=== PATIENT | male | born 1940 | race Caucasian/White ===

== ENCOUNTER → 2016-03-29 | Outpatient (CLI) | payer MEDICARE, OTHER | LOC: RAD 07:05 | PROVIDERS: ATTEND Orthopaedic Surgery | DX: T84.3 Mechanical complication of other bone devices, implants and grafts (principal) ==

== ENCOUNTER 2016-05-19 11:04 | Inpatient (IN) | payer MEDICARE, OTHER ==
[2016-05-09 10:17] LABS: ABSOLUTE EOSINOPHILS # (AUTO) 0.1 10^3/uL (0.0-0.6); ABSOLUTE LYMPHOCYTES (AUTO) 1.5 10^3/uL (0.5-4.7); ABSOLUTE MONOCYTES (AUTO) 0.7 10^3/uL (0.1-1.4); ABSOLUTE NEUT (AUTO) 4.4 10^3/uL (1.7-8.2); BASOPHILS % (AUTO) 0.6 % (0-2); EOSINOPHILS % (AUTO) 1.7 % (0-6); HEMATOCRIT 40.9 % (37.9-51.0); HEMOGLOBIN 13.4 g/dL (13.5-17.0); HGB HCT DIFFERENCE -0.7; LYMPHOCYTES % (AUTO) 22.5 % (13-45); MEAN CORPUSCULAR HEMOGLOBIN 27.6 pg (27.0-33.4); MEAN CORPUSCULAR HGB CONC 32.7 g/dL (32.0-36.0); MEAN CORPUSCULAR VOLUME 84 fl (80-97); MONOCYTES % (AUTO) 9.8 % (3-13); RED BLOOD COUNT 4.85 10^6/uL (4.35-5.55); RED CELL DISTRIBUTION WIDTH 17.3 % (11.5-14.0); SEGMENTED NEUTROPHILS % (AUTO) 65.4 % (42-78); WHITE BLOOD COUNT 6.8 10^3/uL (4.0-10.5)
[2016-05-09 10:26] LABS: APPEARANCE,URINE SLIGHTLY-CLOUDY; BILIRUBIN,URINE NEGATIVE (NEGATIVE); GLUCOSE, URINE NEGATIVE (NEGATIVE); KETONES,URINE NEGATIVE (NEGATIVE); LEUKOCYTE ESTERASE,URINE LARGE (NEGATIVE); NITRITE,URINE NEGATIVE (NEGATIVE); PROTEIN,URINE NEGATIVE (NEGATIVE); URINE SPECIFIC GRAVITY 1.013; UROBILINOGEN,URINE NEGATIVE mg/dL (<2.0)
[2016-05-09 10:42] LABS: ANION GAP 11 (5-19); BLOOD UREA NITROGEN 15 mg/dL (7-20); CALCIUM 9.3 mg/dL (8.4-10.2); CARBON DIOXIDE 26 mmol/L (22-30); CHLORIDE 106 mmol/L (98-107); CREATININE RESULT 0.96 mg/dL (0.52-1.25); GLUCOSE 80 mg/dL (75-110); POTASSIUM 4.7 mmol/L (3.6-5.0); SODIUM 142.9 mmol/L (137-145)
--- NOTE | 2016-05-09 17:16 | EKG REPORT ---
SEVERITY:- ABNORMAL ECG - SINUS RHYTHM ATRIAL PREMATURE COMPLEX BORDERLINE LEFT AXIS DEVIATION NONSPECIFIC T ABNORMALITIES, ANT-LAT LEADS : Confirmed by: Elba Daniel MD 09-May-2016 17:15:30
[~2016-05-19 11:04] MED LIST: BUPIVACAINE INJ/PF LIPOSOME/PF 266 MG/20 ML SDV IJ PRN; CEFAZOLIN 2 GM/D5W RTU 2 GM/50 ML RTUPB IV PRN; LACTATED RINGERS 1000 ML IV PRN; LANSOPRAZOLE 15 MG TAB.RAP.DR PO PRN; OXYCODONE HCL SR 10 MG TABLET PO PRN; RINGERS SOLUTION,LACTATED 500 ML IV PRN; SCOPOLAMINE HYDROBROMIDE 1.5 MG PATCH.TD72 TOP PRN
[2016-05-19 12:15] LABS: PARTIAL THROMBOPLASTIN TIME 30.7 SEC (23.5-35.8)
[2016-05-19] MEDS ORDERED: MIDAZOLAM 2 MG/2 ML INJ ONE (12:50)
[2016-05-19] MEDS ORDERED: FENTANYL CITRATE INJ/PF 250 MCG/5 ML AMPULE ONE (12:50)
[2016-05-19] MEDS ORDERED: ACETAMINOPHEN 100 ML IV ONE ×2 (12:51→22:53)
[2016-05-19] MEDS ORDERED: MORPHINE SULFATE 10 MG/ML INJ ONE (12:51)
[2016-05-19] MEDS ORDERED: PROPOFOL INJ 200 MG/20 ML VIAL IV ONE (12:51)
[2016-05-19] MEDS ORDERED: BUPIVACAINE INJ/PF LIPOSOME/PF 266 MG/20 ML SDV ONE (13:09)
[2016-05-19] MEDS ORDERED: THROMBIN (BOVINE) 5000 UNIT EPITAXIS KIT ONE (13:56)
[2016-05-19] MEDS ORDERED: MEPERIDINE HCL/PF INJ 25 MG/1 ML DISP.SYRIN IV PRN (14:57)
[2016-05-19] MEDS ORDERED: OXYCODONE-ACETAMINOPHEN 5-325 MG TABLET PO PRN ×2 (14:57)
[2016-05-19] MEDS ORDERED: FENTANYL CITRATE INJ/PF 100 MCG/2 ML AMPUL IV PRN ×3 (14:57)
[2016-05-19] MEDS ORDERED: PROMETHAZINE HCL INJ 25 MG/1 ML VIAL IV PRN ×2 (14:57)
[2016-05-19] MEDS ORDERED: DIPHENHYDRAMINE HCL 50 MG/ML VIAL IV PRN ×2 (14:57→16:53)
[2016-05-19] MEDS ORDERED: MORPHINE SULFATE 10 MG/ML INJ IV PRN ×2 (14:57→16:53)
[2016-05-19] MEDS ORDERED: GLYCOPYRROLATE INJ 0.4 MG/2 ML VIAL ONE (15:13)
[2016-05-19] MEDS ORDERED: ROCURONIUM BROMIDE INJ 50 MG/5 ML VIAL IV ONE (15:13)
[2016-05-19] MEDS ORDERED: NEOSTIGMINE METHYLSULFATE 10 MG/10 ML VIAL ONE (15:13)
[2016-05-19] MEDS ORDERED: PHENYLEPHRINE HCL INJ/PF 10 MG/1 ML SDV ONE (15:13)
[2016-05-19] MEDS ORDERED: ONDANSETRON HCL INJ/PF 4 MG/2 ML SDV ONE (15:13)
[2016-05-19] MEDS ORDERED: METOCLOPRAMIDE HCL INJ/PF 10 MG/2 ML SDV ONE (15:13)
[2016-05-19] MEDS ORDERED: LIDOCAINE 2% INJ-PF (20 MG/ML) 10 ML AMPUL ONE (15:13)
[2016-05-19] MEDS ORDERED: SUCCINYLCHOLINE CHLORIDE INJ 200 MG/10 ML VIAL ONE (15:13)
[2016-05-19] MEDS ORDERED: VANCOMYCIN HCL INJ 1000 MG VIAL ONE (15:46)
[2016-05-19] MEDS ORDERED: RINGERS SOLUTION,LACTATED 1,000 ML IV PRN (16:50)
[2016-05-19] MEDS ORDERED: ONDANSETRON 4 MG TAB.RAPDIS PO PRN (16:53)
[2016-05-19] MEDS ORDERED: MORPHINE SULFATE 10 MG/ML INJ IM PRN (16:53)
[2016-05-19] MEDS: MORPHINE SULFATE 10 MG/ML INJ IV PRN ×5 (20:00→22:08)
[2016-05-19] MEDS: LIDOCAINE 0.5% INJ-PF (5 MG/ML) 50 ML SDV SUBCUT PRN ×3 (20:00→21:56)
[2016-05-19] MEDS: OXYCODONE HCL SR 10 MG TABLET PO SCH (21:44)
[2016-05-19] MEDS: CEFAZOLIN 2 GM/D5W RTU 50 ML IV SCH (21:47)
[2016-05-19] MEDS: PREGABALIN 75 MG CAPSULE PO SCH (21:47)
[2016-05-19] MEDS ORDERED: RIVAROXABAN 10 MG TABLET PO SCH (22:00)
[2016-05-20] MEDS ORDERED: CEFAZOLIN 1 GM/D5W RTU 1 GM/50 ML RTUPB IV ONE ×2 (00:43→00:52)
[2016-05-20] MEDS ORDERED: CEFAZOLIN 1 GM/D5W RTU 2 GM/100 ML RTUPB IV ONE (04:56)
[2016-05-20] MEDS: CEFAZOLIN 2 GM/D5W RTU 50 ML IV SCH ×2 (05:00)
[2016-05-20] MEDS: LANSOPRAZOLE 30 MG TAB.RAP.DR PO SCH (05:14)
[2016-05-20 06:31] LABS: HEMATOCRIT 34.7 % (37.9-51.0); HEMOGLOBIN 11.3 g/dL (13.5-17.0); HGB HCT DIFFERENCE -0.8; MEAN CORPUSCULAR HEMOGLOBIN 27.9 pg (27.0-33.4); MEAN CORPUSCULAR HGB CONC 32.5 g/dL (32.0-36.0); MEAN CORPUSCULAR VOLUME 86 fl (80-97); RED BLOOD COUNT 4.05 10^6/uL (4.35-5.55); RED CELL DISTRIBUTION WIDTH 16.3 % (11.5-14.0); WHITE BLOOD COUNT 9.3 10^3/uL (4.0-10.5)
[2016-05-20 06:52] LABS: ANION GAP 8 (5-19); BLOOD UREA NITROGEN 14 mg/dL (7-20); CALCIUM 8.6 mg/dL (8.4-10.2); CARBON DIOXIDE 26 mmol/L (22-30); CHLORIDE 105 mmol/L (98-107); CREATININE RESULT 0.86 mg/dL (0.52-1.25); GLUCOSE 92 mg/dL (75-110); POTASSIUM 4.9 mmol/L (3.6-5.0); SODIUM 139.4 mmol/L (137-145)
[2016-05-20] MEDS: PREGABALIN 75 MG CAPSULE PO SCH ×2 (09:01→17:28)
[2016-05-20] MEDS: OXYCODONE HCL SR 10 MG TABLET PO SCH ×2 (09:01→21:35)
--- NOTE | 2016-05-20 12:32 | PDOC PROGRESS REPORT ---
Subjective Progress Note for:: 05/20/16 Subjective:: Patient seen this morning. Has been doing okay. According to the nurse his dressing was reinforced. His hematuria has resolved. Denies numbness or tingling. Physical Exam Vital Signs: Temp Pulse Resp BP Pulse Ox 98.4 F 68 16 121/73 99 05/20/16 08:00 05/20/16 08:00 05/20/16 08:00 05/20/16 08:00 05/20/16 08:00 Intake & Output 05/19/16 05/20/16 05/21/16 06:59 06:59 06:59 Intake Total 4350 2181 Output Total 1730 Balance 2620 2181 Musculoskeletal exam: PRESENT: other - Left upper extremity: Dressing saturated with blood and changed today. No active drainage from the wound. No sensory deficits throughout the axillary nerve distribution. No sensory deficits distally. Full hand range of motion. Mild ecchymosis at the surgical site. Results Laboratory Results: 05/20/16 05:56 05/20/16 05:56 05/19/16 05/20/16 05/20/16 11:45 05:56 05:56 WBC 9.3 RBC 4.05 L Hgb 11.3 L Hct 34.7 L MCV 86 MCH 27.9 MCHC 32.5 RDW 16.3 H Plt Count 196 Sodium 139.4 Potassium 4.9 Chloride 105 Carbon Dioxide 26 Anion Gap 8 BUN 14 Creatinine 0.86 Est GFR ( Amer) > 60 Est GFR (Non-Af Amer) > 60 Glucose 92 Calcium 8.6 Blood Type O POSITIVE Antibody Screen NEGATIVE Impressions: Chest X-Ray 05/09/16 09:36 IMPRESSION: Nothing acute. Shoulder X-Ray 05/19/16 00:00 IMPRESSION: NO ACUTE OSSEOUS ABNORMALITY OR GROSS HARDWARE COMPLICATION IDENTIFIED. Assessment & Plan - Diagnosis (1) Unstable reverse total shoulder arthroplasty Qualifiers: Encounter type: subsequent encounter Qualified Code(s): T84.028D - Dislocation of other internal joint prosthesis, subsequent encounter Is this a current diagnosis for this admission?: YesPlan: Patient doing well after revision surgery. His radiographs have been reviewed which demonstrate improved alignment of the glenosphere. Patient will continue the abduction brace. His dressing was changed today and his H&H remained stable. We will continue Xarelto for DVT prophylaxis. IV and Lau was DC'd today. Anticipate discharge in 24 hours.
[2016-05-20] MEDS: CEFAZOLIN 2 GM/D5W RTU 2 GM/50 ML RTUPB IV SCH ×2 (14:39→17:28)
[2016-05-20] MEDS: WARFARIN SODIUM 5 MG TABLET PO SCH ×2 (21:36→21:43)
[2016-05-21] MEDS ORDERED: CEFAZOLIN INJ 1 GM VIAL ONE (00:25)
[2016-05-21] MEDS ORDERED: CEFAZOLIN 1 GM/D5W RTU 2 GM/100 ML RTUPB IV ONE (05:47)
[2016-05-21] MEDS: CEFAZOLIN 2 GM/D5W RTU 2 GM/50 ML RTUPB IV SCH ×5 (06:00→23:18)
[2016-05-21] MEDS: LANSOPRAZOLE 30 MG TAB.RAP.DR PO SCH (06:43)
[2016-05-21 07:34] LABS: HEMATOCRIT 32.5 % (37.9-51.0); HEMOGLOBIN 10.4 g/dL (13.5-17.0); HGB HCT DIFFERENCE -1.3; MEAN CORPUSCULAR HEMOGLOBIN 27.6 pg (27.0-33.4); MEAN CORPUSCULAR HGB CONC 32.1 g/dL (32.0-36.0); MEAN CORPUSCULAR VOLUME 86 fl (80-97); RED BLOOD COUNT 3.79 10^6/uL (4.35-5.55); RED CELL DISTRIBUTION WIDTH 16.4 % (11.5-14.0); WHITE BLOOD COUNT 12.7 10^3/uL (4.0-10.5)
[2016-05-21] MEDS: OXYCODONE HCL SR 10 MG TABLET PO SCH (09:28)
[2016-05-21] MEDS: PREGABALIN 75 MG CAPSULE PO SCH ×2 (09:28→17:19)
--- NOTE | 2016-05-21 11:27 | PDOC PROGRESS REPORT ---
Subjective Progress Note for:: 05/21/16 Subjective:: Patient seen this AM according to the he is more confused today. He has undergone physical therapy and is requiring max assistance. Also according to the nurse he has had increased urinary frequency. His pain however has been control. Physical Exam Vital Signs: Temp Pulse Resp BP Pulse Ox 99.2 F 87 16 120/56 L 95 05/21/16 08:00 05/21/16 08:00 05/21/16 08:00 05/21/16 08:00 05/21/16 08:00 Intake & Output 05/20/16 05/21/16 05/22/16 06:59 06:59 06:59 Intake Total 4350 2781 300 Output Total 1730 1935 Balance 2620 846 300 Musculoskeletal exam: PRESENT: other - Left upper extremity: Dressing clean/dry/ intact no erythema or drainage. No sensory deficits. Intact flexion extension of the elbow wrist and hand. Results Laboratory Results: 05/21/16 06:55 05/20/16 05:56 05/21/16 06:55 WBC 12.7 H RBC 3.79 L Hgb 10.4 L Hct 32.5 L MCV 86 MCH 27.6 MCHC 32.1 RDW 16.4 H Plt Count 182 Impressions: Chest X-Ray 05/09/16 09:36 IMPRESSION: Nothing acute. Shoulder X-Ray 05/19/16 00:00 IMPRESSION: NO ACUTE OSSEOUS ABNORMALITY OR GROSS HARDWARE COMPLICATION IDENTIFIED. Assessment & Plan - Diagnosis (1) Unstable reverse total shoulder arthroplasty Qualifiers: Encounter type: subsequent encounter Qualified Code(s): T84.028D - Dislocation of other internal joint prosthesis, subsequent encounter Is this a current diagnosis for this admission?: YesPlan: status post revision left reverse total shoulder Patient has developed some postoperative confusion possibly secondary to underlying urinary tract infection or narcotic pain medication. Thus we will decrease his narcotic pain medication I have discussed this with the nurse. I have made a consultation to Dr. Asher for their input. Patient will continue Coumadin for DVT prophylaxis. After discussing case with and therapy patient will possibly require [facility] facility.
--- NOTE | 2016-05-21 14:29 | PDOC CONSULTATION ---
Consultation Consult Date: 05/21/16 Attending physician:: HI BRITTON Consult reason:: Confusion, urinary frequency. History of Present Illness Admission Date/PCP: 05/19/16 11:04 HILDA RESENDIZ MD Patient complains of: Patient has no complaint. Dr. Britton noted the patient is confused and has urinary frequency. History of Present Illness: DARRELL MATTSON is a 75 year old male who is status post a left total shoulder arthroplasty revision by Dr. Hi Britton on 05/19/2016. He is now 2 days post op. There have been no immediate surgical complications. However the patient is noted to be confused and to have urinary frequency. We are asked to see him in medical consultation. Past Medical History Cardiac Medical History: Reports: Atrial Fibrillation - Dx'ed approx 2 years ago , Hypertension - meds x 2 years Denies: Congestive Heart Failure, Coronary Artery Disease, Myocardial Infarction, Hyperlipidema, Peripheral Vascular Disease, Pulmonary Embolism, Heart Murmur Pulmonary Medical History: Denies: Asthma, Bronchitis, Chronic Obstructive Pulmonary Disease (COPD), Pneumonia, Respiratory Failure, Sleep Apnea, Tuberculosis Neurological Medical History: Denies: Seizures Endocrine Medical History: Reports: Other - Gout Denies: Hyperthyroidism, Hypothyroidism Renal/ Medical History: Reports: Other - Benign prostatic hypertrophy Denies: End Stage Renal Disease Malignancy Medical History: Denies: Leukemia, Lung Cancer GI Medical History: Reports: Hiatal Hernia, Other - Chronic constipation Denies: Crohn's Disease, Gastroesophageal Reflux Disease, Hepatitis Musculoskeltal Medical History: Reports: Arthritis, Other - Rheumatoid arthritis Denies: Fibromyalgia Psychiatric Medical History: Reports: Depression - meds Denies: Bipolar Disorder, Dementia, Post Traumatic Stress Disorder Hematology: Denies: Anemia, Hemophilia, Sickle Cell Disease Infectious Medical History: Denies: HIV Past Surgical History Past Surgical History: Reports: Appendectomy - 1955, Herniorrhaphy - dexter ing 1969's, umbilical hernia repair w/mesh 2012, Orthopedic Surgery - bilat arms and legs, back, Tonsillectomy, Other - Bilateral total shoulder arthroplasties and bilateral TKAs. Denies: Cholecystectomy, Colostomy, Coronary Artery Bypass Graft, Gastric Bypass Surgery, Pacemaker Social History Smoking Status: Former Smoker Cigarettes Packs Per Day: 3 Hx Recreational Drug Use: No Hx Prescription Drug Abuse: No - Advance Directive Resuscitation Status: Full Code Family History Parental Family History Reviewed: No - Unable to give history due to confusion. Children Family History Reviewed: No Sibling(s) Family History Reviewed.: No Medication/Allergy Home Medications: Folic Acid 800 mg PO QAM 12/21/10 Gabapentin [Neurontin 400 Mg Capsule] 400 mg PO QID 12/21/10 Methotrexate Sodium [Methotrexate] 2.5 mg PO ASDIR 12/21/10 Febuxostat [Uloric 40 Mg Tablet] 40 mg PO QAM 04/19/12 Multivitamin [Multiple Vitamins] 1 each PO DAILY 04/19/12 Sertraline HCl [Zoloft 50 Mg Tablet] 50 mg PO QAM 04/19/12 Diltiazem HCl [Cartia Xt] 120 mg PO QAM 10/22/13 Finasteride 5 mg PO QPM 10/22/13 Hydrocodone Bit/Acetaminophen [Hydrocodon-Acetaminophen 5-325] 1 each PO Q6H PRN 10/22/13 Alfuzosin HCl [Alfuzosin HCl ER] 10 mg PO DAILY 05/09/16 Warfarin Sodium [Coumadin 5 mg Tablet] 5 mg PO QPM 05/09/16 Allergies/Adverse Reactions: ibuprofen [Ibuprofen] Allergy (Severe, Verified 10/22/13 10:37) numbness of face and hands allopurinol [Allopurinol] Allergy (Intermediate, Verified 10/22/13 10:37) rash colchicine Allergy (Intermediate, Verified 10/22/13 10:37) migraine SALDIVAR Review of Systems ROS unobtainable: Due to mental status Physical Exam Vital Signs: Temp Pulse Resp BP Pulse Ox 99.3 F 82 14 144/56 H 95 05/21/16 12:00 05/21/16 12:00 05/21/16 12:00 05/21/16 12:00 05/21/16 12:00 Intake & Output 05/20/16 05/21/16 05/22/16 06:59 06:59 06:59 Intake Total 4350 2781 300 Output Total 1730 1935 Balance 2620 846 300 General appearance: PRESENT: no acute distress, cooperative, other - Confused Head exam: PRESENT: atraumatic, normocephalic Eye exam: PRESENT: conjunctiva pink, EOMI, PERRLA. ABSENT: scleral icterus Mouth exam: PRESENT: moist, tongue midline Neck exam: ABSENT: carotid bruit, JVD, lymphadenopathy, thyromegaly Respiratory exam: PRESENT: other - Coarse breath sounds bilaterally.. ABSENT: rales, rhonchi, wheezes Cardiovascular exam: PRESENT: RRR. ABSENT: diastolic murmur, rubs, systolic murmur Pulses: PRESENT: normal dorsalis pedis pul GI/Abdominal exam: PRESENT: normal bowel sounds, soft. ABSENT: distended, guarding, mass, organolmegaly, rebound, tenderness Rectal exam: PRESENT: deferred Extremities exam: PRESENT: full ROM, other - Scars consistent with B TKA.. ABSENT: calf tenderness, clubbing, pedal edema Neurological exam: PRESENT: altered, awake Psychiatric exam: PRESENT: normal mood Skin exam: PRESENT: dry, intact, warm. ABSENT: cyanosis, rash Results Laboratory Results: 05/21/16 06:55 05/20/16 05:56 05/21/16 06:55 WBC 12.7 H RBC 3.79 L Hgb 10.4 L Hct 32.5 L MCV 86 MCH 27.6 MCHC 32.1 RDW 16.4 H Plt Count 182 Impressions: Chest X-Ray 05/09/16 09:36 IMPRESSION: Nothing acute. Shoulder X-Ray 05/19/16 00:00 IMPRESSION: NO ACUTE OSSEOUS ABNORMALITY OR GROSS HARDWARE COMPLICATION IDENTIFIED. Assessment & Plan - Diagnosis (1) Confusion Is this a current diagnosis for this admission?: YesPlan: The patient is mildly confused 2 days status post left total shoulder arthroplasty. The potential causes are numerous. We will rule out urinary tract infection as he also has a complaint of urinary frequency. Medications, especially pain medications, should be considered. We'll check screening laboratory studies. We'll consider CT brain. (2) Urinary frequency Is this a current diagnosis for this admission?: YesPlan: Rule out UTI. Check UA and C&S. (3) Rheumatoid arthritis Qualifiers: Rheumatoid arthritis location: shoulder Laterality: left Is this a current diagnosis for this admission?: YesPlan: The patient has a history of rheumatoid arthritis and is currently on methotrexate. He has had bilateral shoulder arthroplasties and revisions as well as bilateral total knee arthroplasties. (4) Gout Is this a current diagnosis for this admission?: YesPlan: I assume there is a history of gout, per medications. (5) BPH (benign prostatic hypertrophy) Is this a current diagnosis for this admission?: YesPlan: I assume there is a history of benign prostatic hypertrophy, per medications. (6) HTN (hypertension) Is this a current diagnosis for this admission?: Yes (7) Chronic pain syndrome Is this a current diagnosis for this admission?: YesPlan: Pain medications may certainly contribute to the patient's confusion. (8) Depression Is this a current diagnosis for this admission?: YesPlan: I assume there is a history of depression, per medications. (9) Chronic constipation Is this a current diagnosis for this admission?: YesPlan: History of chronic constipation, per electronic medical record.
[2016-05-21 15:35] LABS: APPEARANCE,URINE SLIGHTLY-CLOUDY; BILIRUBIN,URINE NEGATIVE (NEGATIVE); GLUCOSE, URINE NEGATIVE (NEGATIVE); KETONES,URINE TRACE mg/dL (NEGATIVE); LEUKOCYTE ESTERASE,URINE LARGE (NEGATIVE); NITRITE,URINE NEGATIVE (NEGATIVE); PROTEIN,URINE NEGATIVE (NEGATIVE); URINE SPECIFIC GRAVITY 1.011; UROBILINOGEN,URINE NEGATIVE mg/dL (<2.0)
[2016-05-21] MEDS ORDERED: BISACODYL 10 MG SUPP.RECT PR ONE (17:25)
[2016-05-21] MEDS: POLYETHYLENE GLYCOL 3350 POWDER 17 GM/1 PACKET PO SCH (18:17)
[2016-05-21] MEDS: DOCUSATE SODIUM 100 MG CAPSULE PO SCH (18:17)
[2016-05-21] MEDS: OXYCODONE HCL IR 5 MG TABLET PO PRN (21:45)
[2016-05-21] MEDS: DOXAZOSIN MESYLATE 1 MG TABLET PO SCH (21:52)
[2016-05-22] MEDS: CEFAZOLIN 2 GM/D5W RTU 2 GM/50 ML RTUPB IV SCH ×4 (05:35→23:33)
[2016-05-22] MEDS: LANSOPRAZOLE 30 MG TAB.RAP.DR PO SCH (05:36)
[2016-05-22 06:31] LABS: HEMATOCRIT 32.2 % (37.9-51.0); HEMOGLOBIN 10.5 g/dL (13.5-17.0); HGB HCT DIFFERENCE -0.7; MEAN CORPUSCULAR HEMOGLOBIN 27.9 pg (27.0-33.4); MEAN CORPUSCULAR HGB CONC 32.7 g/dL (32.0-36.0); MEAN CORPUSCULAR VOLUME 85 fl (80-97); RED BLOOD COUNT 3.78 10^6/uL (4.35-5.55); RED CELL DISTRIBUTION WIDTH 16.4 % (11.5-14.0); WHITE BLOOD COUNT 13.8 10^3/uL (4.0-10.5)
[2016-05-22 06:54] LABS: ALANINE AMINOTRANSFERASE 20 U/L (21-72); ALBUMIN 3.1 g/dL (3.5-5.0); ALKALINE PHOSPHATASE 74 U/L (38-126); ANION GAP 14 (5-19); ASPARTATE AMINO TRANSFERASE 83 U/L (17-59); BILIRUBIN,DIRECT 0.5 mg/dL (0.0-0.4); BLOOD UREA NITROGEN 13 mg/dL (7-20); CARBON DIOXIDE 22 mmol/L (22-30); CHLORIDE 105 mmol/L (98-107); CREATININE RESULT 0.82 mg/dL (0.52-1.25); GLUCOSE 105 mg/dL (75-110); SODIUM 140.5 mmol/L (137-145); TOTAL PROTEIN 5.6 g/dL (6.3-8.2)
--- NOTE | 2016-05-22 08:48 | PDOC PROGRESS REPORT ---
Subjective Progress Note for:: 05/22/16 Subjective:: dysuria Physical Exam Vital Signs: Temp Pulse Resp BP Pulse Ox 99.1 F 98 18 133/91 H 100 05/21/16 23:52 05/21/16 23:52 05/21/16 23:52 05/21/16 23:52 05/21/16 23:52 Intake & Output 05/21/16 05/22/16 05/23/16 07:59 07:59 07:59 Intake Total 3081 570 Output Total 1939 1915 Balance 1146 -1345 General appearance: PRESENT: no acute distress Respiratory exam: PRESENT: clear to auscultation dexter Cardiovascular exam: PRESENT: systolic murmur. ABSENT: diastolic murmur, irregular rhythm GI/Abdominal exam: PRESENT: tenderness - moderate suprapubic. ABSENT: mass, organolmegaly Extremities exam: ABSENT: pedal edema Neurological exam: ABSENT: oriented to time Results Laboratory Results: 05/22/16 06:14 05/22/16 06:14 05/21/16 05/22/16 05/22/16 15:15 06:14 06:14 WBC 13.8 H RBC 3.78 L Hgb 10.5 L Hct 32.2 L MCV 85 MCH 27.9 MCHC 32.7 RDW 16.4 H Plt Count 177 Sodium 140.5 Potassium 4.0 Chloride 105 Carbon Dioxide 22 Anion Gap 14 BUN 13 Creatinine 0.82 Est GFR ( Amer) > 60 Est GFR (Non-Af Amer) > 60 Glucose 105 Calcium 9.0 Total Bilirubin 1.0 AST 83 H ALT 20 L Alkaline Phosphatase 74 Total Protein 5.6 L Albumin 3.1 L Vitamin B12 306.0 Folate 11.50 TSH Urine Color YELLOW Urine Appearance SLIGHTLY-CLOUDY Urine pH 6.0 Ur Specific [place] 1.011 Urine Protein NEGATIVE Urine Glucose (UA) NEGATIVE Urine Ketones TRACE H Urine Blood MODERATE H Urine Nitrite NEGATIVE Ur Leukocyte Esterase LARGE H Urine WBC (Auto) 126 Urine RBC (Auto) 4 05/22/16 06:14 WBC RBC Hgb Hct MCV MCH MCHC RDW Plt Count Sodium Potassium Chloride Carbon Dioxide Anion Gap BUN Creatinine Est GFR ( Amer) Est GFR (Non-Af Amer) Glucose Calcium Total Bilirubin AST ALT Alkaline Phosphatase Total Protein Albumin Vitamin B12 Folate TSH 0.79 Urine Color Urine Appearance Urine pH Ur Specific [place] Urine Protein Urine Glucose (UA) Urine Ketones Urine Blood Urine Nitrite Ur Leukocyte Esterase Urine WBC (Auto) Urine RBC (Auto) Impressions: Chest X-Ray 05/09/16 09:36 IMPRESSION: Nothing acute. Shoulder X-Ray 05/19/16 00:00 IMPRESSION: NO ACUTE OSSEOUS ABNORMALITY OR GROSS HARDWARE COMPLICATION IDENTIFIED. Assessment & Plan - Diagnosis (1) Acute cystitis without hematuria Is this a current diagnosis for this admission?: YesPlan: Pyuria. Tmax 100.8. Culture on antibiotic pending. Continue cefazolin for now
[2016-05-22] MEDS: DOCUSATE SODIUM 100 MG CAPSULE PO SCH ×2 (10:02→18:35)
[2016-05-22] MEDS: PREGABALIN 75 MG CAPSULE PO SCH ×2 (10:02→18:35)
[2016-05-22] MEDS: SERTRALINE HCL 50 MG TABLET PO SCH (10:03)
[2016-05-22] MEDS: FINASTERIDE 5 MG TABLET PO SCH (10:03)
[2016-05-22] MEDS: FOLIC ACID 1 MG TABLET PO SCH (10:03)
[2016-05-22] MEDS: FEBUXOSTAT 40 MG TABLET PO SCH (10:04)
[2016-05-22] MEDS: MULTIVITAMIN TABLET PO SCH (10:04)
--- NOTE | 2016-05-22 17:51 | PDOC PROGRESS REPORT ---
Subjective Progress Note for:: 05/22/16 Subjective:: Patient is postop day 3 from revision left reverse total shoulder. Patient with appropriate answers and seems to be alert and oriented today. Currently on antibiotics for positive urine culture for gram-negative rods both were waiting for final antibiotic test to treat it accordingly. No issues overnight. Physical Exam Vital Signs: Temp Pulse Resp BP Pulse Ox 37.4 C 85 14 140/70 H 100 05/22/16 07:53 05/22/16 07:53 05/22/16 07:53 05/22/16 07:53 05/22/16 07:53 Intake & Output 05/21/16 05/22/16 05/23/16 06:59 06:59 06:59 Intake Total 2781 870 Output Total 1935 1915 Balance 846 -1045 Neurological exam: PRESENT: awake, oriented to person, oriented to place, oriented to time Adult Front & Back Image: 1 - Dressing with minimal drainage. Incision is dry clean and intact. He is neurovascularly intact distally with sling intact and in proper place. Results Laboratory Results: 05/22/16 06:14 05/22/16 06:14 05/22/16 05/22/16 05/22/16 06:14 06:14 06:14 WBC 13.8 H RBC 3.78 L Hgb 10.5 L Hct 32.2 L MCV 85 MCH 27.9 MCHC 32.7 RDW 16.4 H Plt Count 177 Sodium 140.5 Potassium 4.0 Chloride 105 Carbon Dioxide 22 Anion Gap 14 BUN 13 Creatinine 0.82 Est GFR ( Amer) > 60 Est GFR (Non-Af Amer) > 60 Glucose 105 Calcium 9.0 Total Bilirubin 1.0 AST 83 H ALT 20 L Alkaline Phosphatase 74 Total Protein 5.6 L Albumin 3.1 L Vitamin B12 306.0 Folate 11.50 TSH 0.79 Impressions: Chest X-Ray 05/09/16 09:36 IMPRESSION: Nothing acute. Shoulder X-Ray 05/19/16 00:00 IMPRESSION: NO ACUTE OSSEOUS ABNORMALITY OR GROSS HARDWARE COMPLICATION IDENTIFIED. Assessment & Plan - Plan Summary Plan Summary: Patient is postop day 3 from left reverse total shoulder revision. Continue antibiotics and awaiting sensitivity for the positive gram-negative karla cultures in his urine. Continue Xarelto for DVT prophylaxis. Continue physical therapy. Patient is being recommended for [facility] facility so awaiting approval for a bed for transfer. Continue sling to the left upper extremity.
[2016-05-22] MEDS: POLYETHYLENE GLYCOL 3350 POWDER 17 GM/1 PACKET PO SCH (18:35)
[2016-05-22] MEDS: DOXAZOSIN MESYLATE 1 MG TABLET PO SCH (21:59)
[2016-05-22] MEDS: WARFARIN SODIUM 5 MG TABLET PO SCH (21:59)
[2016-05-23] MEDS: LANSOPRAZOLE 30 MG TAB.RAP.DR PO SCH (05:10)
[2016-05-23] MEDS: CEFAZOLIN 2 GM/D5W RTU 2 GM/50 ML RTUPB IV SCH (05:10)
--- NOTE | 2016-05-23 07:42 | PDOC PROGRESS REPORT ---
Subjective Progress Note for:: 05/23/16 Subjective:: less pain & dysuria Physical Exam Vital Signs: Temp Pulse Resp BP Pulse Ox 98.9 F 86 19 132/62 H 100 05/22/16 23:05 05/22/16 23:05 05/22/16 23:05 05/22/16 23:05 05/22/16 23:05 Intake & Output 05/21/16 05/22/16 05/23/16 07:59 07:59 07:59 Intake Total 3081 570 950 Output Total 1935 1915 900 Balance 1146 -1345 50 Weight 178 lb 9.191 oz General appearance: PRESENT: no acute distress Respiratory exam: PRESENT: clear to auscultation dexter Cardiovascular exam: ABSENT: diastolic murmur, irregular rhythm, systolic murmur GI/Abdominal exam: ABSENT: mass, organolmegaly, tenderness Extremities exam: ABSENT: pedal edema Results Laboratory Results: 05/22/16 06:14 05/22/16 06:14 05/22/16 06:14 Sodium 140.5 Potassium 4.0 Chloride 105 Carbon Dioxide 22 Anion Gap 14 BUN 13 Creatinine 0.82 Est GFR ( Amer) > 60 Est GFR (Non-Af Amer) > 60 Glucose 105 Calcium 9.0 Total Bilirubin 1.0 AST 83 H ALT 20 L Alkaline Phosphatase 74 Total Protein 5.6 L Albumin 3.1 L Vitamin B12 306.0 Folate 11.50 Impressions: Chest X-Ray 05/09/16 09:36 IMPRESSION: Nothing acute. Shoulder X-Ray 05/19/16 00:00 IMPRESSION: NO ACUTE OSSEOUS ABNORMALITY OR GROSS HARDWARE COMPLICATION IDENTIFIED. Assessment & Plan - Diagnosis (1) Acute cystitis without hematuria Is this a current diagnosis for this admission?: YesPlan: pseudomonas again sentiive cipro=allergy & Cefepime. Try cefepime
[2016-05-23] MEDS: PREGABALIN 75 MG CAPSULE PO SCH ×2 (09:44→17:48)
[2016-05-23] MEDS: DOCUSATE SODIUM 100 MG CAPSULE PO SCH ×2 (09:44→17:48)
[2016-05-23] MEDS: FEBUXOSTAT 40 MG TABLET PO SCH (09:44)
[2016-05-23] MEDS: MULTIVITAMIN TABLET PO SCH (09:45)
[2016-05-23] MEDS: SERTRALINE HCL 50 MG TABLET PO SCH (09:45)
[2016-05-23] MEDS: FINASTERIDE 5 MG TABLET PO SCH (09:45)
[2016-05-23] MEDS: FOLIC ACID 1 MG TABLET PO SCH (09:45)
[2016-05-23] MEDS ORDERED: CEFEPIME 2 GM/D5W RTU 50 ML IV SCH (10:00)
--- NOTE | 2016-05-23 10:13 | PDOC PROGRESS REPORT ---
Subjective Progress Note for:: 05/23/16 Subjective:: Patient seen this AM according to nurse he has been doing well and mentation improved. Patient appears more alert and oriented today. States pain controlled. Denies CP/SOB Physical Exam Vital Signs: Temp Pulse Resp BP Pulse Ox 98.8 F 81 18 118/64 99 05/23/16 08:00 05/23/16 08:00 05/23/16 08:00 05/23/16 08:00 05/23/16 08:00 Intake & Output 05/22/16 05/23/16 05/24/16 06:59 06:59 06:59 Intake Total 870 950 Output Total 1915 900 Balance -1045 50 Weight 81 kg General appearance: PRESENT: no acute distress, cooperative Musculoskeletal exam: PRESENT: other - Left shoulder: Dressing as small area of dry blood centrally but no erythema or active drainage. Ecchymosis along the upper arm. Intact flexion extension of the elbow wrist and hand. No sensory deficits. Results Laboratory Results: 05/22/16 06:14 05/22/16 06:14 05/19/16 14:31 Shoulder - Left Gram Stain - Final 05/19/16 14:31 Shoulder - Left Wound Culture - Final NO AEROBIC OR ANAEROBIC ORGANISMS RECOVERED Impressions: Chest X-Ray 05/09/16 09:36 IMPRESSION: Nothing acute. Shoulder X-Ray 05/19/16 00:00 IMPRESSION: NO ACUTE OSSEOUS ABNORMALITY OR GROSS HARDWARE COMPLICATION IDENTIFIED. Assessment & Plan - Diagnosis (1) Unstable reverse total shoulder arthroplasty Qualifiers: Encounter type: subsequent encounter Qualified Code(s): T84.028D - Dislocation of other internal joint prosthesis, subsequent encounter Is this a current diagnosis for this admission?: YesPlan: Patient is postop day 4 Revision left reverse total shoulder 1. antibiotics and awaiting sensitivity for the positive gram-negative karla cultures in his urine. Currently on Cefepime 2. Xarelto for DVT prophylaxis. 3. physical therapy. Patient is being recommended for longterm facility so awaiting approval for a bed for transfer. 4. sling to the left upper extremity.
[2016-05-23] MEDS: CEFEPIME HCL 2 GM in DEXTROSE 5%-WATER 50 ML IV SCH ×2 (11:32→21:37)
[2016-05-23] MEDS: POLYETHYLENE GLYCOL 3350 POWDER 17 GM/1 PACKET PO SCH (17:48)
[2016-05-23] MEDS: DOXAZOSIN MESYLATE 1 MG TABLET PO SCH (21:35)
[2016-05-23] MEDS: WARFARIN SODIUM 5 MG TABLET PO SCH (21:36)
[2016-05-24] MEDS: LANSOPRAZOLE 30 MG TAB.RAP.DR PO SCH (05:23)
--- NOTE | 2016-05-24 07:21 | PDOC PROGRESS REPORT ---
Subjective Progress Note for:: 05/24/16 Subjective:: dysuria gone Physical Exam Vital Signs: Temp Pulse Resp BP Pulse Ox 98.4 F 84 19 124/63 100 05/23/16 23:04 05/23/16 23:04 05/23/16 23:04 05/23/16 23:04 05/23/16 23:04 Intake & Output 05/22/16 05/23/16 05/24/16 07:59 07:59 07:59 Intake Total 570 950 867 Output Total 1915 900 500 Balance -1345 50 367 Weight 178 lb 9.191 oz 178 lb 5.663 oz General appearance: PRESENT: no acute distress Respiratory exam: PRESENT: clear to auscultation dexter Cardiovascular exam: ABSENT: diastolic murmur, irregular rhythm, systolic murmur GI/Abdominal exam: ABSENT: mass, organolmegaly, tenderness Extremities exam: ABSENT: pedal edema Results Laboratory Results: 05/22/16 06:14 05/22/16 06:14 05/21/16 15:15 Clean Catch Midstream Urine Culture - Final Pseudomonas Aeruginosa 05/19/16 14:31 Shoulder - Left Gram Stain - Final 05/19/16 14:31 Shoulder - Left Wound Culture - Final NO AEROBIC OR ANAEROBIC ORGANISMS RECOVERED Impressions: Chest X-Ray 05/09/16 09:36 IMPRESSION: Nothing acute. Shoulder X-Ray 05/19/16 00:00 IMPRESSION: NO ACUTE OSSEOUS ABNORMALITY OR GROSS HARDWARE COMPLICATION IDENTIFIED. Assessment & Plan - Diagnosis (1) Acute cystitis without hematuria Is this a current diagnosis for this admission?: YesPlan: continue IV cefepime since cipro gave him rash in past.
[2016-05-24] MEDS: DOCUSATE SODIUM 100 MG CAPSULE PO SCH ×2 (10:32→17:14)
[2016-05-24] MEDS: FINASTERIDE 5 MG TABLET PO SCH (10:32)
[2016-05-24] MEDS: MULTIVITAMIN TABLET PO SCH (10:32)
[2016-05-24] MEDS: FEBUXOSTAT 40 MG TABLET PO SCH (10:33)
[2016-05-24] MEDS: SERTRALINE HCL 50 MG TABLET PO SCH (10:33)
[2016-05-24] MEDS: FOLIC ACID 1 MG TABLET PO SCH (10:33)
[2016-05-24] MEDS: PREGABALIN 75 MG CAPSULE PO SCH ×2 (10:33→17:14)
[2016-05-24] MEDS: CEFEPIME HCL 2 GM in DEXTROSE 5%-WATER 50 ML IV SCH ×2 (10:35→21:45)
[2016-05-24] MEDS: OXYCODONE HCL IR 5 MG TABLET PO PRN (14:23)
[2016-05-24] MEDS: POLYETHYLENE GLYCOL 3350 POWDER 17 GM/1 PACKET PO SCH (17:15)
--- NOTE | 2016-05-24 18:20 | PDOC PROGRESS REPORT ---
Subjective Progress Note for:: 05/24/16 Subjective:: Patient states his pain is adequately controlled. No issues overnight. Had a bowel movement already. No longer has burning sensation when he urinates and no longer has increased frequency. Patient would like to go home if possible. Physical Exam Vital Signs: Temp Pulse Resp BP Pulse Ox 36.8 C 86 16 113/61 100 05/24/16 16:00 05/24/16 16:00 05/24/16 16:00 05/24/16 16:00 05/24/16 16:00 Intake & Output 05/23/16 05/24/16 05/25/16 06:59 06:59 06:59 Intake Total 950 867 707 Output Total 900 500 550 Balance 50 367 157 Weight 81 kg 80.9 kg General appearance: PRESENT: no acute distress Neurological exam: PRESENT: alert, awake, oriented to person, oriented to place , oriented to time Psychiatric exam: PRESENT: appropriate affect, normal mood Adult Front & Back Image: 1 - Dressing with minor drainage. No erythema noted to the dressing. Roberto are intact. Sling in place. He is neurovascular intact distally. Results Laboratory Results: 05/22/16 06:14 05/22/16 06:14 Impressions: Chest X-Ray 05/09/16 09:36 IMPRESSION: Nothing acute. Shoulder X-Ray 05/19/16 00:00 IMPRESSION: NO ACUTE OSSEOUS ABNORMALITY OR GROSS HARDWARE COMPLICATION IDENTIFIED. Assessment & Plan - Plan Summary Plan Summary: 76-year-old gentleman who is 5 days out from left shoulder revision. He is still waiting for a bed but patient is asking to be discharged home tomorrow if possible. Depending of Dr. Thomas can switch his IV antibiotics to by mouth antibiotics I will be okay with that. Continue sling to left upper extremity. Continue physical therapy. Potential discharge planning tomorrow to home pending discussion with Dr. Thomas.
[2016-05-24] MEDS: WARFARIN SODIUM 5 MG TABLET PO SCH (21:45)
[2016-05-24] MEDS: DOXAZOSIN MESYLATE 1 MG TABLET PO SCH (21:45)
[2016-05-25] MEDS: LANSOPRAZOLE 30 MG TAB.RAP.DR PO SCH (05:10)
--- NOTE | 2016-05-25 08:07 | PDOC PROGRESS REPORT ---
Subjective Progress Note for:: 05/25/16 Subjective:: ok & prefers home but willing to stay to finish a week of cefepime sunday in 4d Physical Exam Vital Signs: Temp Pulse Resp BP Pulse Ox 97.8 F 81 18 126/68 H 99 05/25/16 00:31 05/25/16 00:31 05/25/16 00:31 05/25/16 00:31 05/25/16 00:31 Intake & Output 05/24/16 05/25/16 05/26/16 07:59 07:59 07:59 Intake Total 867 1047 Output Total 500 800 Balance 367 247 Weight 178 lb 5.663 oz General appearance: PRESENT: no acute distress Respiratory exam: PRESENT: clear to auscultation dexter Cardiovascular exam: ABSENT: diastolic murmur, irregular rhythm, systolic murmur GI/Abdominal exam: ABSENT: mass, organolmegaly, tenderness Extremities exam: ABSENT: pedal edema Results Laboratory Results: 05/22/16 06:14 05/22/16 06:14 Impressions: Chest X-Ray 05/09/16 09:36 IMPRESSION: Nothing acute. Shoulder X-Ray 05/19/16 00:00 IMPRESSION: NO ACUTE OSSEOUS ABNORMALITY OR GROSS HARDWARE COMPLICATION IDENTIFIED. Assessment & Plan - Diagnosis (1) Acute cystitis without hematuria Is this a current diagnosis for this admission?: YesPlan: 2014 rash on d3 of cipro. Levaquin only other po option and could cross react. Continue cefepime. Check kub for stone recurrence.
[2016-05-25] MEDS: CEFEPIME HCL 2 GM in DEXTROSE 5%-WATER 50 ML IV SCH ×2 (11:54→22:23)
[2016-05-25] MEDS: FOLIC ACID 1 MG TABLET PO SCH (11:55)
[2016-05-25] MEDS: FINASTERIDE 5 MG TABLET PO SCH (11:55)
[2016-05-25] MEDS: DOCUSATE SODIUM 100 MG CAPSULE PO SCH ×2 (11:55→17:13)
[2016-05-25] MEDS: PREGABALIN 75 MG CAPSULE PO SCH ×2 (11:55→17:13)
[2016-05-25] MEDS: FEBUXOSTAT 40 MG TABLET PO SCH (11:55)
[2016-05-25] MEDS: MULTIVITAMIN TABLET PO SCH (11:55)
[2016-05-25] MEDS: SERTRALINE HCL 50 MG TABLET PO SCH (11:55)
[2016-05-25] MEDS: POLYETHYLENE GLYCOL 3350 POWDER 17 GM/1 PACKET PO SCH (17:14)
--- NOTE | 2016-05-25 17:49 | PDOC PROGRESS REPORT ---
Subjective Progress Note for:: 05/25/16 Subjective:: Patient states having good pain control. No issues overnight. Physical Exam Vital Signs: Temp Pulse Resp BP Pulse Ox 36.9 C 70 18 118/60 100 05/25/16 07:46 05/25/16 07:46 05/25/16 07:46 05/25/16 07:46 05/25/16 07:46 Intake & Output 05/24/16 05/25/16 05/26/16 06:59 06:59 06:59 Intake Total 867 1047 Output Total 500 800 Balance 367 247 Weight 80.9 kg General appearance: PRESENT: no acute distress Neurological exam: PRESENT: alert, awake, oriented to person, oriented to place , oriented to time Psychiatric exam: PRESENT: appropriate affect, normal mood Adult Front & Back Image: 1 - Sling in place. Has good radial pulse with positive wrist extension and flexion. Positive finger extension and flexion. Good sensation to light touch distally. Some drainage but still dry clean and intact. Results Laboratory Results: 05/22/16 06:14 05/22/16 06:14 Impressions: Chest X-Ray 05/09/16 09:36 IMPRESSION: Nothing acute. Shoulder X-Ray 05/19/16 00:00 IMPRESSION: NO ACUTE OSSEOUS ABNORMALITY OR GROSS HARDWARE COMPLICATION IDENTIFIED. KUB X-Ray 05/25/16 00:00 IMPRESSION: NO CALCIFICATIONS IDENTIFIED IN THE EXPECTED LOCATION OF THE URINARY SYSTEM. Assessment & Plan - Plan Summary Plan Summary: 76-year-old gentleman status post revision left reverse total shoulder arthroplasty. Continue sling. Taught him how to do pendulum exercises which she will start tonight. Continue pain control. Continue IV antibiotics for another [address] Thomas recommendation Plan on discharge 4-5 days.
[2016-05-25] MEDS: WARFARIN SODIUM 5 MG TABLET PO SCH (22:22)
[2016-05-25] MEDS: DOXAZOSIN MESYLATE 1 MG TABLET PO SCH (22:22)
[2016-05-25] MEDS: OXYCODONE HCL IR 5 MG TABLET PO PRN (23:10)
[2016-05-26] MEDS: LANSOPRAZOLE 30 MG TAB.RAP.DR PO SCH (05:53)
--- NOTE | 2016-05-26 07:16 | PDOC PROGRESS REPORT ---
Subjective Progress Note for:: 05/26/16 Subjective:: no hesitancy Physical Exam Vital Signs: Temp Pulse Resp BP Pulse Ox 98.7 F 76 16 119/63 100 05/26/16 00:00 05/26/16 00:00 05/26/16 00:00 05/26/16 00:00 05/26/16 00:00 Intake & Output 05/24/16 05/25/16 05/26/16 07:59 07:59 07:59 Intake Total 867 1047 1240 Output Total 412 322 1703 Balance 367 247 240 Weight 178 lb 5.663 oz 182 lb 1.629 oz General appearance: PRESENT: no acute distress Respiratory exam: PRESENT: clear to auscultation dexter Cardiovascular exam: ABSENT: diastolic murmur, irregular rhythm, systolic murmur GI/Abdominal exam: ABSENT: mass, organolmegaly, tenderness Extremities exam: ABSENT: pedal edema Neurological exam: PRESENT: oriented to situation Psychiatric exam: PRESENT: appropriate affect Results Laboratory Results: 05/22/16 06:14 05/22/16 06:14 Impressions: Chest X-Ray 05/09/16 09:36 IMPRESSION: Nothing acute. Shoulder X-Ray 05/19/16 00:00 IMPRESSION: NO ACUTE OSSEOUS ABNORMALITY OR GROSS HARDWARE COMPLICATION IDENTIFIED. KUB X-Ray 05/25/16 00:00 IMPRESSION: NO CALCIFICATIONS IDENTIFIED IN THE EXPECTED LOCATION OF THE URINARY SYSTEM. Assessment & Plan - Diagnosis (1) Acute cystitis without hematuria Is this a current diagnosis for this admission?: YesPlan: afebrile d4 cefepime. No stones on KUB. 3 more days
[2016-05-26] MEDS: FEBUXOSTAT 40 MG TABLET PO SCH (10:21)
[2016-05-26] MEDS: SERTRALINE HCL 50 MG TABLET PO SCH (10:21)
[2016-05-26] MEDS: FINASTERIDE 5 MG TABLET PO SCH (10:21)
[2016-05-26] MEDS: PREGABALIN 75 MG CAPSULE PO SCH ×2 (10:21→17:48)
[2016-05-26] MEDS: FOLIC ACID 1 MG TABLET PO SCH (10:21)
[2016-05-26] MEDS: MULTIVITAMIN TABLET PO SCH (10:21)
[2016-05-26] MEDS: DOCUSATE SODIUM 100 MG CAPSULE PO SCH ×2 (10:21→17:48)
[2016-05-26] MEDS: CEFEPIME HCL 2 GM in DEXTROSE 5%-WATER 50 ML IV SCH ×2 (10:24→22:30)
--- NOTE | 2016-05-26 16:33 | PDOC PROGRESS REPORT ---
Subjective Progress Note for:: 05/26/16 Subjective:: Patient resting comfortably in bed. No issues overnight. Physical Exam Vital Signs: Temp Pulse Resp BP Pulse Ox 36.8 C 75 20 110/57 L 100 05/26/16 12:00 05/26/16 12:00 05/26/16 12:00 05/26/16 12:00 05/26/16 12:00 Intake & Output 05/25/16 05/26/16 05/27/16 06:59 06:59 06:59 Intake Total 1047 1240 Output Total 800 1000 Balance 247 240 Weight 82.6 kg Adult Front & Back Image: 1 - Dressing removed. Incision dry clean and intact. Patient is neurovascular intact distally. Sling is in proper position. Results Laboratory Results: 05/22/16 06:14 05/22/16 06:14 Impressions: Chest X-Ray 05/09/16 09:36 IMPRESSION: Nothing acute. Shoulder X-Ray 05/19/16 00:00 IMPRESSION: NO ACUTE OSSEOUS ABNORMALITY OR GROSS HARDWARE COMPLICATION IDENTIFIED. KUB X-Ray 05/25/16 00:00 IMPRESSION: NO CALCIFICATIONS IDENTIFIED IN THE EXPECTED LOCATION OF THE URINARY SYSTEM. Assessment & Plan - Plan Summary Plan Summary: Patient is one week out from left shoulder revision reverse total arthroplasty. Patient pain is adequately controlled and barely taking any narcotics. Therapy and doing pendulum exercises. Patient will stay over the weekend and received 2 more days of IV cefepime. Anticipate discharge on Sunday.
[2016-05-26] MEDS: POLYETHYLENE GLYCOL 3350 POWDER 17 GM/1 PACKET PO SCH (17:49)
[2016-05-26] MEDS: WARFARIN SODIUM 5 MG TABLET PO SCH (22:30)
[2016-05-26] MEDS: DOXAZOSIN MESYLATE 1 MG TABLET PO SCH (22:30)
[2016-05-27] MEDS: LANSOPRAZOLE 30 MG TAB.RAP.DR PO SCH (06:02)
--- NOTE | 2016-05-27 07:06 | PDOC PROGRESS REPORT ---
Subjective Progress Note for:: 05/27/16 Subjective:: no complaints Physical Exam Vital Signs: Temp Pulse Resp BP Pulse Ox 97.7 F 76 18 133/59 H 100 05/26/16 23:48 05/26/16 23:48 05/26/16 23:48 05/26/16 23:48 05/26/16 23:48 Intake & Output 05/25/16 05/26/16 05/27/16 07:59 07:59 07:59 Intake Total 1047 1240 860 Output Total 800 1000 875 Balance 247 240 -15 Weight 182 lb 1.629 oz 173 lb 15.115 oz General appearance: PRESENT: no acute distress Respiratory exam: PRESENT: clear to auscultation dextre Cardiovascular exam: ABSENT: diastolic murmur, irregular rhythm, systolic murmur Rectal exam: ABSENT: tenderness Extremities exam: ABSENT: pedal edema Results Laboratory Results: 05/22/16 06:14 05/22/16 06:14 Impressions: Chest X-Ray 05/09/16 09:36 IMPRESSION: Nothing acute. Shoulder X-Ray 05/19/16 00:00 IMPRESSION: NO ACUTE OSSEOUS ABNORMALITY OR GROSS HARDWARE COMPLICATION IDENTIFIED. KUB X-Ray 05/25/16 00:00 IMPRESSION: NO CALCIFICATIONS IDENTIFIED IN THE EXPECTED LOCATION OF THE URINARY SYSTEM. Assessment & Plan - Diagnosis (1) Acute cystitis without hematuria Is this a current diagnosis for this admission?: YesPlan: 2 more days
[2016-05-27] MEDS: CEFEPIME HCL 2 GM in DEXTROSE 5%-WATER 50 ML IV SCH ×2 (10:00→22:24)
[2016-05-27] MEDS: FOLIC ACID 1 MG TABLET PO SCH (11:47)
[2016-05-27] MEDS: PREGABALIN 75 MG CAPSULE PO SCH ×2 (11:47→17:16)
[2016-05-27] MEDS: SERTRALINE HCL 50 MG TABLET PO SCH (11:48)
[2016-05-27] MEDS: FINASTERIDE 5 MG TABLET PO SCH (11:48)
[2016-05-27] MEDS: MULTIVITAMIN TABLET PO SCH (11:48)
[2016-05-27] MEDS: FEBUXOSTAT 40 MG TABLET PO SCH (11:49)
[2016-05-27] MEDS: DOCUSATE SODIUM 100 MG CAPSULE PO SCH ×2 (12:05→17:16)
[2016-05-27] MEDS: POLYETHYLENE GLYCOL 3350 POWDER 17 GM/1 PACKET PO SCH (17:16)
[2016-05-27] MEDS: DOXAZOSIN MESYLATE 1 MG TABLET PO SCH (22:24)
[2016-05-27] MEDS: WARFARIN SODIUM 5 MG TABLET PO SCH (22:24)
[2016-05-28] MEDS: LANSOPRAZOLE 30 MG TAB.RAP.DR PO SCH (05:38)
--- NOTE | 2016-05-28 07:25 | PDOC PROGRESS REPORT ---
Subjective Progress Note for:: 05/28/16 Subjective:: no complaints Physical Exam Vital Signs: Temp Pulse Resp BP Pulse Ox 98.3 F 73 20 144/65 H 99 05/27/16 23:45 05/27/16 23:45 05/27/16 23:45 05/27/16 23:45 05/27/16 23:45 Intake & Output 05/26/16 05/27/16 05/28/16 07:59 07:59 07:59 Intake Total 6067 315 6081 Output Total 1000 875 720 Balance 240 -15 640 Weight 182 lb 1.629 oz 173 lb 15.115 oz General appearance: PRESENT: no acute distress Respiratory exam: PRESENT: clear to auscultation dexter Cardiovascular exam: ABSENT: diastolic murmur, irregular rhythm, systolic murmur GI/Abdominal exam: PRESENT: soft. ABSENT: tenderness Extremities exam: ABSENT: pedal edema Results Laboratory Results: 05/22/16 06:14 05/22/16 06:14 Impressions: Chest X-Ray 05/09/16 09:36 IMPRESSION: Nothing acute. Shoulder X-Ray 05/19/16 00:00 IMPRESSION: NO ACUTE OSSEOUS ABNORMALITY OR GROSS HARDWARE COMPLICATION IDENTIFIED. KUB X-Ray 05/25/16 00:00 IMPRESSION: NO CALCIFICATIONS IDENTIFIED IN THE EXPECTED LOCATION OF THE URINARY SYSTEM. Assessment & Plan - Diagnosis (1) Acute cystitis without hematuria Is this a current diagnosis for this admission?: YesPlan: 1 more day cefepime
[2016-05-28] MEDS: FINASTERIDE 5 MG TABLET PO SCH (09:21)
[2016-05-28] MEDS: MULTIVITAMIN TABLET PO SCH (09:21)
[2016-05-28] MEDS: SERTRALINE HCL 50 MG TABLET PO SCH (09:21)
[2016-05-28] MEDS: CEFEPIME HCL 2 GM in DEXTROSE 5%-WATER 50 ML IV SCH ×2 (09:21→21:16)
[2016-05-28] MEDS: PREGABALIN 75 MG CAPSULE PO SCH ×2 (09:21→17:54)
[2016-05-28] MEDS: FEBUXOSTAT 40 MG TABLET PO SCH (09:21)
[2016-05-28] MEDS: FOLIC ACID 1 MG TABLET PO SCH (09:21)
[2016-05-28] MEDS: DOCUSATE SODIUM 100 MG CAPSULE PO SCH ×2 (09:22→17:52)
--- NOTE | 2016-05-28 12:37 | PDOC PROGRESS REPORT ---
Subjective Progress Note for:: 05/28/16 Subjective:: Patient states she is doing well in terms of his shoulder. Denies fever chills or sweats. Denies numbness or tingling. Pain control. Physical Exam Vital Signs: Temp Pulse Resp BP Pulse Ox 98.6 F 78 14 134/63 H 100 05/28/16 08:16 05/28/16 08:16 05/28/16 08:16 05/28/16 08:16 05/28/16 08:16 Intake & Output 05/27/16 05/28/16 05/29/16 06:59 06:59 06:59 Intake Total 860 1360 Output Total 875 720 Balance -15 640 Weight 78.9 kg Musculoskeletal exam: PRESENT: other - Left shoulder: Dressing clean/dry/intact no erythema or drainage. Mild swelling. Intact flexion extension of the elbow. Palpable contraction of the deltoid. Results Laboratory Results: 05/22/16 06:14 05/22/16 06:14 Impressions: Chest X-Ray 05/09/16 09:36 IMPRESSION: Nothing acute. Shoulder X-Ray 05/19/16 00:00 IMPRESSION: NO ACUTE OSSEOUS ABNORMALITY OR GROSS HARDWARE COMPLICATION IDENTIFIED. KUB X-Ray 05/25/16 00:00 IMPRESSION: NO CALCIFICATIONS IDENTIFIED IN THE EXPECTED LOCATION OF THE URINARY SYSTEM. Assessment & Plan - Diagnosis (1) Unstable reverse total shoulder arthroplasty Qualifiers: Encounter type: subsequent encounter Qualified Code(s): T84.028D - Dislocation of other internal joint prosthesis, subsequent encounter Is this a current diagnosis for this admission?: YesPlan: Status post revision reverse total shoulder arthroplasty #1 patient may begin pendulum exercises along with elbow wrist and hand range of motion. #2 cefepime for UTI #3 DVT prophylaxis #4 discharge pain senior care facility when bed available
[2016-05-28] MEDS: POLYETHYLENE GLYCOL 3350 POWDER 17 GM/1 PACKET PO SCH (17:52)
[2016-05-28] MEDS: DOXAZOSIN MESYLATE 1 MG TABLET PO SCH (21:15)
[2016-05-28] MEDS: WARFARIN SODIUM 5 MG TABLET PO SCH (21:16)
[2016-05-29] MEDS: LANSOPRAZOLE 30 MG TAB.RAP.DR PO SCH (05:19)
[2016-05-29 06:24] LABS: PROTHROMBIN TIME 20.7 SEC (11.4-15.4)
[2016-05-29] MEDS ORDERED: WARFARIN SODIUM 5 MG TABLET PO SCH (07:16)
--- NOTE | 2016-05-29 07:21 | PDOC PROGRESS REPORT ---
Subjective Progress Note for:: 05/29/16 Subjective:: wants home today not long-term Physical Exam Vital Signs: Temp Pulse Resp BP Pulse Ox 97.9 F 72 18 120/64 100 05/28/16 22:44 05/28/16 22:44 05/28/16 22:44 05/28/16 22:44 05/28/16 22:44 Intake & Output 05/27/16 05/28/16 05/29/16 07:59 07:59 07:59 Intake Total 860 1360 1440 Output Total 875 720 955 Balance -15 640 485 Weight 173 lb 15.115 oz General appearance: PRESENT: no acute distress Respiratory exam: PRESENT: clear to auscultation dexter Cardiovascular exam: PRESENT: RRR. ABSENT: diastolic murmur, irregular rhythm, systolic murmur GI/Abdominal exam: ABSENT: mass, organolmegaly, tenderness Extremities exam: ABSENT: pedal edema Results Laboratory Results: 05/22/16 06:14 05/22/16 06:14 Impressions: Chest X-Ray 05/09/16 09:36 IMPRESSION: Nothing acute. Shoulder X-Ray 05/19/16 00:00 IMPRESSION: NO ACUTE OSSEOUS ABNORMALITY OR GROSS HARDWARE COMPLICATION IDENTIFIED. KUB X-Ray 05/25/16 00:00 IMPRESSION: NO CALCIFICATIONS IDENTIFIED IN THE EXPECTED LOCATION OF THE URINARY SYSTEM. Assessment & Plan - Diagnosis (1) Acute cystitis without hematuria Is this a current diagnosis for this admission?: YesPlan: can go home after cefepime this am. May have early. (2) Afib Qualifiers: Atrial fibrillation type: paroxysmal Qualified Code(s): I48.0 - Paroxysmal atrial fibrillation Is this a current diagnosis for this admission?: YesPlan: inr1.7 even after a week of antibiotic. Suggest increasing warfarin from 5mg qhs to 7.5mg M&F and 5mg rest of week. Needs inr at my office in 1 week.
[2016-05-29] MEDS: FINASTERIDE 5 MG TABLET PO SCH (09:23)
[2016-05-29] MEDS: FEBUXOSTAT 40 MG TABLET PO SCH (09:24)
[2016-05-29] MEDS: PREGABALIN 75 MG CAPSULE PO SCH (09:24)
[2016-05-29] MEDS: SERTRALINE HCL 50 MG TABLET PO SCH (09:24)
[2016-05-29] MEDS: MULTIVITAMIN TABLET PO SCH (09:24)
[2016-05-29] MEDS: CEFEPIME HCL 2 GM in DEXTROSE 5%-WATER 50 ML IV SCH (09:25)
[2016-05-29] MEDS: DOCUSATE SODIUM 100 MG CAPSULE PO SCH (09:29)
[2016-05-29] MEDS: FOLIC ACID 1 MG TABLET PO SCH (09:29)
--- NOTE | 2016-05-29 17:59 | PDOC DISCHARGE SUMMARY ---
General - Admit/Disc Date/PCP Admission Date/Primary Care Provider: 05/19/16 11:04 HILDA RESENDIZ MD Discharge Date: 05/29/16 - Additional Information Resuscitation Status: Full Code Discharge Diet: As Tolerated Discharge Activity: No Lifting Over 10 Pounds, No Lifting/Push/Pulling Home Medications: Folic Acid 800 mg PO QAM 12/21/10 Gabapentin [Neurontin 400 Mg Capsule] 400 mg PO QID 12/21/10 Methotrexate Sodium [Methotrexate] 2.5 mg PO ASDIR 12/21/10 Febuxostat [Uloric 40 Mg Tablet] 40 mg PO QAM 04/19/12 Multivitamin [Multiple Vitamins] 1 each PO DAILY 04/19/12 Sertraline HCl [Zoloft 50 Mg Tablet] 50 mg PO QAM 04/19/12 Diltiazem HCl [Cartia Xt] 120 mg PO QAM 10/22/13 Finasteride 5 mg PO QPM 10/22/13 Hydrocodone Bit/Acetaminophen [Hydrocodon-Acetaminophen 5-325] 1 each PO Q6H PRN 10/22/13 Alfuzosin HCl [Alfuzosin HCl ER] 10 mg PO DAILY 05/09/16 Warfarin Sodium [Coumadin 5 mg Tablet] 5 mg PO QPM 05/09/16 History of Present Illness Patient complains of: Persistent left shoulder pain s/p left reverse total shoulder History of Present Illness: DARRELL MATTSON is a 76 year old male with 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 History of dislocations. Recent CT scan showed a broken screw with a superior placement of the glenoidsphere baseplate. Attempted conservative treatment with activity modification and injection as well as medication with no relief of symptoms. With positive findings and imaging we then decided to proceed with left shoulder reverse total shoulder revision with bone graft of his iliac crest. Patient underwent surgical procedure and was admitted overnight. Hospital Course Hospital Course: On 05/19/16 Surgery went very well with no complication's I was able to revise the glenoid component. Polyethylene spacer was exchanged as well. Unfortunately doing preparation for the surgery patient had a Lau placed and had blood come back which showed a stricture. Labs came back the patient had probably cystitis and on postop day 1 patient was kept on antibiotics. Hospitalist was consulted and his primary Dr. Sanchez took over care for his cystitis last UTI. Patient participated physical therapy postop day [address] until his discharge on 2016. Patient was tried on by mouth antibiotics and then switched to IV cefepime. Recommendation was to try him on cefepime for total of 7 days therefore patient was kept in the hospital until full treatment. Patient was on Xarelto during the whole hospital stay starting on postop day 1. Patient was now asked intact had no issues during his hospital stay and no fevers or chills. Patient wore his sling as instructed. Dressing was changed on postoperative day 3. Incision is dry clean and intact with no issues. [place] were removed on his date of discharge. Patient will follow-up in my office in 1 -2 weeks. Physical Exam Vital Signs: Temp Pulse Resp BP Pulse Ox 37.1 C 67 16 125/65 100 05/29/16 07:31 05/29/16 07:31 05/29/16 07:31 05/29/16 07:31 05/29/16 07:31 Intake & Output 05/28/16 05/29/16 05/30/16 06:59 06:59 06:59 Intake Total 1360 1440 Output Total 720 955 Balance 640 485 General appearance: PRESENT: no acute distress Head exam: PRESENT: atraumatic Eye exam: PRESENT: EOMI. ABSENT: nystagmus Torso Front/Back Image: 1 - Incision is dry clean and intact. Roberto were removed. Patient able to abduct about 60-70 with no pain. Neurovascular intact distally. Slight tenderness to palpation as expected with no ecchymosis. Sling in proper place. 2 - Steri-Strips are intact. Incision is dry clean and intact. No signs of erythema. Original dressing was removed and Steri-Strips were left to air. Neurological exam: PRESENT: alert, awake, oriented to person, oriented to place , oriented to time Psychiatric exam: PRESENT: appropriate affect, normal mood Results Laboratory Results: 05/22/16 06:14 05/22/16 06:14 Impressions: Chest X-Ray 05/09/16 09:36 IMPRESSION: Nothing acute. Shoulder X-Ray 05/19/16 00:00 IMPRESSION: NO ACUTE OSSEOUS ABNORMALITY OR GROSS HARDWARE COMPLICATION IDENTIFIED. KUB X-Ray 05/25/16 00:00 IMPRESSION: NO CALCIFICATIONS IDENTIFIED IN THE EXPECTED LOCATION OF THE URINARY SYSTEM. Status: Image reviewed by me Plan Discharge Plan: Patient will be discharged today. Instructed to keep wearing the sling until follow-up appointment in 2 weeks. Continue doing pendulum exercises as instructed. Patient no longer requires narcotics so no prescription for narcotic was given. Patient is ambulatory and therefore we will stop the Xarelto. Follow-up in one to 2 weeks in my office.
[2016-05-29 18:53] VITALS: BP 119/69
== END 2016-05-29 19:30 | disposition home or self-care (01) | DRG 483 ==
LOC: INOR 11:04 → 4S 18:57
PROVIDERS: ADMIT Orthopaedic Surgery; ATTEND Orthopaedic Surgery
PROC: 0RPK0JZ Removal of Synthetic Substitute from Left Shoulder Joint, Open Approach (ICD-10-PCS; 2016-05-19)
PROC: 0RRK0JZ Replacement of Left Shoulder Joint with Synthetic Substitute, Open Approach (ICD-10-PCS; principal; 2016-05-19 13:00)
DX: T84.018A Broken internal joint prosthesis, other site, initial encounter (principal); N30.00 Acute cystitis without hematuria; I48.0 Paroxysmal atrial fibrillation; I10 Essential (primary) hypertension; M06.9 Rheumatoid arthritis, unspecified; N40.0 Benign prostatic hyperplasia without lower urinary tract symptoms; K59.00 Constipation, unspecified; G89.4 Chronic pain syndrome; M10.9 Gout, unspecified; F32.9 Major depressive disorder, single episode, unspecified; Z79.899 Other long term (current) drug therapy; Z79.01 Long term (current) use of anticoagulants; Z87.442 Personal history of urinary calculi; Z87.891 Personal history of nicotine dependence; Z88.8 Allergy status to other drugs, medicaments and biological substances
CPT/HCPCS: 01638; 36415; 71020; 74000; 80048; 80053; 81001; 82607; 82746; 84443; 85025; 85027; 85610; 85730; 86850; 86900; 86901; 87070; 87075; 87086; 87088; 87186; 87205; 93005; 93010; 94799; C1713; C1769; C1776; C9290; G8978-GP; G8979-GP; J0131; J0330; J0690; J0692; J2250; J2270; J2370; J2405; J2704; J2765; J3010; J3370; J3490; J7120

== ENCOUNTER 2019-01-09 12:38 | Day surgery (SDC) | payer MEDICARE, OTHER ==
[~2019-01-09 12:38] MED LIST changes: -BUPIVACAINE INJ/PF LIPOSOME/PF 266 MG/20 ML SDV IJ PRN; -CEFAZOLIN 2 GM/D5W RTU 2 GM/50 ML RTUPB IV PRN; +CHONDR SU A NA/HYALUR INTRAOC KIT (SURGICARE) ONE; +EPINEPHRINE INJ/PF 1 MG/1 ML AMPULE ONE; +KETOROLAC TROMETHAMINE 0.45% 4 DROP/0.4 ML DROPERETTE OS PRN; -LACTATED RINGERS 1000 ML IV PRN; -LANSOPRAZOLE 15 MG TAB.RAP.DR PO PRN; +LIDOCAINE 1% INJ-PF (10 MG/ML) 30 ML SDV ONE; -OXYCODONE HCL SR 10 MG TABLET PO PRN; -RINGERS SOLUTION,LACTATED 500 ML IV PRN; -SCOPOLAMINE HYDROBROMIDE 1.5 MG PATCH.TD72 TOP PRN
[2019-01-09] MEDS ORDERED: MIDAZOLAM 2 MG/2 ML INJ ONE (13:16)
[2019-01-09] MEDS ORDERED: ONDANSETRON HCL INJ/PF 4 MG/2 ML SDV ONE (13:16)
[2019-01-09] MEDS ORDERED: FENTANYL CITRATE INJ/PF 100 MCG/2 ML AMPUL ONE ×2 (13:17→15:09)
[2019-01-09] MEDS: TETRACAINE HCL 0.5% OPH SOLN 4 ML OS PRN ×3 (13:41→14:25)
[2019-01-09] MEDS: BESIFLOXACIN HCL 0.6% OPH SUSP 5 ML BOTTLE OS PRN ×4 (13:42→14:58)
[2019-01-09] MEDS: TROPICAMIDE 1% OPH SOLN 15 ML OS PRN ×3 (13:42→14:11)
[2019-01-09] MEDS: CYCLOPENTOLATE 0.2%/PHENYLEPHRINE 1% OPH SOLN 2 ML OS PRN ×3 (13:42→14:11)
[2019-01-09] MEDS: DORZOLAMIDE HCL 2%/TIMOLOL MALEAT 0.5% OPH SOLN 10 ML OS PRN ×2 (14:58)
[2019-01-09] MEDS ORDERED: LIDOCAINE 2% INJ-PF (100 MG/5 ML) SYRINGE ONE (15:09)
[2019-01-09] MEDS ORDERED: PROPOFOL INJ 200 MG/20 ML VIAL IV ONE (15:09)
--- NOTE | 2019-01-11 10:52 | Operative Report ---
Operative Report-[facility] Operative Report: PREOPERATIVE DIAGNOSIS: Nuclear, cortical and posterior subcapsular cataract, left eye POSTOPERATIVE DIAGNOSIS: Nuclear, cortical and posterior subcapsular cataracts, left eye PROCEDURE: Phacoemulsification and posterior chamber intraocular lens implant, left eye PROCEDURE DATE: [January 09, 2019] SURGEON: Eloy Gómez MD Next AUTHORIZATION REPRESENTATIVE: [Anyi] ANESTHESIA: Topical with IV sedation next COMPLICATIONS: None TISSUE TO PATHOLOGY: None ESTIMATED BLOOD LOSS: None INDICATION FOR SURGERY: [Mr. Moncada is a 78 year old male] Who presents to our clinic complaining of difficulty seeing, to read and drive due to blurry vision in both eyes. On examination, she was found to have best corrected visual acuity of [20/50] in the left eye. Ophthalmoscopy revealed a [2+] nuclear, [2+] corneal degeneration, [trace] posterior subcapsular cataract in the left eye with normal appearing cornea, vitreous, retina and optic nerve. I discussed the findings of the exam with the patient. We discussed the risks, benefits and alternatives of cataract extraction and intraocular lens implant in the left eye as a means of improving her vision. Risks that were discussed with the patient include infection, bleeding, retinal detachment and possible need for additional surgery. The patient understands that she may need to wear glasses after surgery. After discussion, the patient indicated her interest in having this procedure performed by signing an informed witness consent form. REPORT OF PROCEDURE: On the day of surgery, the patient was given a topical application to the left eye to consist of drop of Tetracaine 0.5%, tropicamide 1%, Cyclomidril, Besivance 0.6% and Acular 0.45%. The patient was then taken to the operating room in a supine position in a standard eye bed. Intravenous sedation was administered and she was prepped and draped in the standard fashion. A timeout was performed to confirm the surgical site. Attention was directed to the left eye where a paracentesis was created at the 5:30 position at the corneal limbus with a 15 degree blade. The anterior chamber was filled with 0.3 mL of 1% methylparaben free lidocaine and after 30 seconds the anterior chamber was filled with viscoelastic material. A 3 plane corneal incision was then made at the 3 o'clock position at the cornea limbus with a keratome. A continuous curvilinear capsulorrhexis was then made in the anterior capsule of the lens with a cystotome. The lens was hydrodissected using balanced saline solution. The lens nucleus was then removed by phacoemulsification using the stop and chop technique. CDE [7.67 ]. The remaining cortical material was then removed from the posterior capsular bag using irrigation and aspiration. The posterior capsule bag was filled with viscoelastic material and a lens implant was inserted into the posterior capsule bag. I have chosen for this case is a one piece acrylic lens from [employer] model [[id number]], serial number [[id number]], lens power [20.0]. The lens was removed from its package, inspected and found to be free of defects it was loaded into a [place] D oracle database architect. The oracle database architect was passed through the temporal wound and the lens was advanced into the posterior capsular bag. The lens implant was centered in the posterior capsular bag with the [place] spatula the viscoelastic material was removed from the eye using irrigation and aspiration. The wounds were closed by stromal hydration and they were tested with the Weck-Jacy sponges and found to have no leaks. Intraocular pressure was assessed by manual palpitation found to be with in the physiologic range. The drape and speculum were removed. Drops of Durezol, Combigan and gatifloxacin were instilled in the left eye. The patient was then taken to the recovery room in good condition. The patient tolerated the procedure very well. The patient was given a prescription for gatifloxacin, Durezol and Ilervo to use every 2 hours while awake today. She will return my clinic tomorrow for follow-up evaluation.
== END 2019-01-09 16:00 | disposition home or self-care (01) ==
LOC: SC 12:38
PROVIDERS: ATTEND Ophthalmology
DX: H25.812 Combined forms of age-related cataract, left eye (principal); I10 Essential (primary) hypertension; I48.91 Unspecified atrial fibrillation; Z87.891 Personal history of nicotine dependence
CPT/HCPCS: 66984; J2250; J3490 ×3; A9270; J0171; J3010; J2001; J2405; J2704; 142

== ENCOUNTER 2019-08-07 11:50 | Day surgery (SDC) | payer MEDICARE, OTHER ==
[~2019-08-07 11:50] MED LIST changes: +BUPIVACAINE HCL 0.75% INJ/PF (7.5 MG/1 ML) 10 ML SDV OD PRN; +KETOROLAC TROMETHAMINE 0.45% 4 DROP/0.4 ML DROPERETTE OD PRN; -KETOROLAC TROMETHAMINE 0.45% 4 DROP/0.4 ML DROPERETTE OS PRN; -LIDOCAINE 1% INJ-PF (10 MG/ML) 30 ML SDV ONE; +LIDOCAINE 1%/PHENYLEPHRINE 1.5% 1 ML VIAL ONE; +LIDOCAINE 4% INJ/PF (40 MG/ML) 5 ML AMPUL OD PRN
[2019-08-07] MEDS ORDERED: ONDANSETRON HCL INJ/PF 4 MG/2 ML SDV ONE (12:51)
[2019-08-07] MEDS ORDERED: MIDAZOLAM 2 MG/2 ML INJ ONE (12:52)
[2019-08-07] MEDS ORDERED: FENTANYL CITRATE INJ/PF 100 MCG/2 ML AMPUL ONE (12:52)
[2019-08-07] MEDS: TETRACAINE HCL 0.5% OPH SOLN 4 ML OD PRN ×3 (13:14→13:55)
[2019-08-07] MEDS: TROPICAMIDE 1% OPH SOLN 15 ML OD PRN ×3 (13:14→13:38)
[2019-08-07] MEDS: BESIFLOXACIN HCL 0.6% OPH SUSP 5 ML BOTTLE OD PRN ×4 (13:15→14:19)
[2019-08-07] MEDS: CYCLOPENTOLATE 0.2%/PHENYLEPHRINE 1% OPH SOLN 2 ML OD PRN ×3 (13:15→13:38)
[2019-08-07] MEDS: DORZOLAMIDE HCL 2%/TIMOLOL MALEAT 0.5% OPH SOLN 10 ML OD PRN ×2 (14:19)
--- NOTE | 2019-08-10 18:51 | Operative Report ---
Operative Report-[facility] Operative Report: PREOPERATIVE DIAGNOSIS: Nuclear, cortical and posterior subcapsular cataract, right eye POSTOPERATIVE DIAGNOSIS: Nuclear, cortical and posterior subcapsular cataracts, right eye PROCEDURE: Phacoemulsification and posterior chamber intraocular lens implant, right eye PROCEDURE DATE: [August 07, 2019] SURGEON: Eloy Gómez MD Next GERIATRIC NURSE PRACTITIONER: [Anyi] ANESTHESIA: Topical with IV sedation next COMPLICATIONS: None TISSUE TO PATHOLOGY: None ESTIMATED BLOOD LOSS: None INDICATION FOR SURGERY: [Mr. Moncada is a 79 year old male ] Who presents to our clinic complaining of difficulty seeing, to read and drive due to blurry vision in both eyes. On examination, she was found to have best corrected visual acuity of [20/25 glare 20/150] in the right eye. Ophthalmoscopy revealed a [+2] nuclear, [+2] corneal degeneration, [trace] posterior subcapsular cataract in the right eye with normal appearing cornea, vitreous, retina and optic nerve. I discussed the findings of the exam with the patient. We discussed the risks, benefits and alternatives of cataract extraction and intraocular lens implant in the right eye as a means of improving her vision. Risks that were discussed with the patient include infection, bleeding, retinal detachment and possible need for additional surgery. The patient understands that she may need to wear glasses after surgery. After discussion, the patient indicated her interest in having this procedure performed by signing an informed witness consent form. REPORT OF PROCEDURE: On the day of surgery, the patient was given a topical application to the right eye to consist of drop of Tetracaine 0.5%, tropicamide 1%, Cyclomidril, Besivance 0.6% and Acular 0.45%. The patient was then taken to the operating room in a supine position in a standard eye bed. Intravenous sedation was administered and she was prepped and draped in the standard fashion. A timeout was performed to confirm the surgical site. Attention was directed to the right eye where a paracentesis was created at the 11:30 position at the corneal limbus with a 15 degree blade. The anterior chamber was filled with 0.3 mL of 1% methylparaben free lidocaine and after 30 seconds the anterior chamber was filled with viscoelastic material. A 3 plane corneal incision was then made at the 9 o'clock position at the cornea limbus with a keratome. A continuous curvilinear capsulorrhexis was then made in the anterior capsule of the lens with a cystotome. The lens was hydrodissected using balanced saline farrah ution. The lens nucleus was then removed by phacoemulsification using the stop and chop technique. CDE [8.16]. The remaining cortical material was then removed from the posterior capsular bag using irrigation and aspiration. The posterior capsule bag was filled with viscoelastic material and a lens implant was inserted into the posterior capsule bag. I have chosen for this case is a one piece acrylic lens from [employer] model [[id number]], serial number [[id number]], lens power [20.0]. The lens was removed from its package, inspected and found to be free of defects it was loaded into a [place] D senior business manager. The senior business manager was passed through the temporal wound and the lens was advanced into the posterior capsular bag. The lens implant was centered in the posterior capsular bag with the [place] spatula the viscoelastic material was removed from the eye using irrigation and aspiration. The wounds were closed by stromal hydration and they were tested with the Weck-Jacy sponges and found to have no leaks. Intraocular pressure was assessed by manual palpitation found to be with in the physiologic range. The drape and speculum were removed. Drops of Durezol, Combigan and gatifloxacin were instilled in the right eye. The patient was then taken to the recovery room in good condition. The patient tolerated the procedure very well. The patient was given a prescription for gatifloxacin, Durezol and Ilervo to use every 2 hours while awake today. She will return my clinic tomorrow for follow-up evaluation.
== END 2019-08-07 14:50 | disposition home or self-care (01) ==
LOC: SC 11:50
PROVIDERS: ATTEND Ophthalmology
DX: H25.811 Combined forms of age-related cataract, right eye (principal); I10 Essential (primary) hypertension; I48.91 Unspecified atrial fibrillation; Z88.8 Allergy status to other drugs, medicaments and biological substances; N40.0 Benign prostatic hyperplasia without lower urinary tract symptoms; M10.9 Gout, unspecified; Z79.899 Other long term (current) drug therapy; Z79.01 Long term (current) use of anticoagulants
CPT/HCPCS: 66984; V2632; J2250; J3490 ×2; A9270; J0171; J3010; J2405; 142